=== PATIENT | female | born 1960 | race American Indian/Alaskan Native ===

== ENCOUNTER 2018-03-07 13:10 | Emergency (ER) | payer SELFPAY ==
--- NOTE | 2018-03-07 13:58 | XRay Report ---
LEFT FOOT, 3 views: History: Foot/toe injury, pain. The bony architecture is intact. Bony alignment is normal. No soft tissue abnormalities are seen. The joint spaces appear preserved. A small plantar spur is noted. IMPRESSION: No evidence for acute injury. Small plantar spur.
--- NOTE | 2018-03-07 18:14 | Emergency Department Report ---
ED Lower Extremity HPI - General Chief Complaint: Extremity Injury, Lower Stated Complaint: FELL DOWN STAIRS/POSS BROKEN TOES Time Seen by Provider: 03/07/18 18:04 Source: patient, family Mode of arrival: Wheelchair Limitations: No Limitations - History of Present Illness Initial Comments: This is a 57-year-old female patient here reported that she fell down stairs and possible have Procan fourth toe. She reports bruising to her left second toe and pain. She reports swelling and pain is 10 out of 10 worse with weightbearing and touching. No alleviating factors. She says she took Motrin at home for pain. MD Complaint: foot injury, fall -: This afternoon Injury: Toes: Left (left second toe pain, bruising and swelling) Type of Injury: hyperflexion Place: home Severity: severe Severity scale (0 -10): 10 Improves With: nothing Worsens With: weight bearing, movement, palpation Context: fall Associated Symptoms: swelling, able to partially bear weight. denies: numbness , tingling, unable to bear weight, ambulatory Treatments Prior to Arrival: NSAIDS - Related Data Previous Rx's Medication Instructions Recorded Last Taken Type Ibuprofen [Motrin] 800 mg PO Q8HR PRN #21 tablet 03/07/18 Unknown Rx Allergies Allergy/AdvReac Type Severity Reaction Status Date / Time codeine Allergy Swelling Verified 03/07/18 13:16 ED Review of Systems ROS: Stated complaint: FELL DOWN STAIRS/POSS BROKEN TOES Other details as noted in HPI Constitutional: denies: chills, fever Eyes: denies: eye discharge ENT: denies: epistaxis Respiratory: denies: cough, shortness of breath, SOB with exertion, SOB at rest , stridor, wheezing Cardiovascular: denies: chest pain, palpitations, edema, syncope Gastrointestinal: denies: abdominal pain, nausea, vomiting, diarrhea Musculoskeletal: joint swelling, arthralgia. denies: back pain, myalgia Skin: change in color ( left second toe). denies: rash, lesions Neurological: abnormal gait (due to injury to left foot). denies: headache, numbness, paresthesias, confusion ED Past Medical Hx - Past Medical History Previous Medical History?: Yes Hx Hypertension: Yes Hx Asthma: Yes - Surgical History Past Surgical History?: Yes Additional Surgical History: tubal ligation - Family History Family history: hypertension - Social History Smoking Status: Never Smoker Substance Use Type: Alcohol, Marijuana - Medications Home Medications: Home Medications Medication Instructions Recorded Confirmed Last Taken Type Ibuprofen [Motrin] 800 mg PO Q8HR PRN #21 tablet 03/07/18 Unknown Rx ED Physical Exam - General Limitations: No Limitations General appearance: alert, in no apparent distress - Head Head exam: Present: atraumatic, normocephalic, normal inspection - Eye Eye exam: Present: normal appearance, PERRL, EOMI. Absent: periorbital swelling , periorbital tenderness Pupils: Present: normal accommodation - ENT ENT exam: Present: normal exam, normal orophraynx, mucous membranes moist - Neck Neck exam: Present: normal inspection, full ROM, other (no C-spine tenderness). Absent: tenderness, lymphadenopathy - Respiratory Respiratory exam: Present: normal lung sounds bilaterally. Absent: respiratory distress, chest wall tenderness - Cardiovascular Cardiovascular Exam: Present: regular rate, normal rhythm, normal heart sounds - Extremities Exam Extremities exam: Present: normal inspection, full ROM (limited range of motion to left second toe and worsened pain with dorsiflexion), tenderness (left second toe), normal capillary refill, joint swelling ( left second toe), other ( No cce. + 2 pulses in all extremities, no neurovascular compromise except bruising and swelling, contusion second toe secondary to falling. Patient with limited range of motion second toe.). Absent: pedal edema, calf tenderness - Back Exam Back exam: Present: normal inspection, full ROM. Absent: tenderness - Neurological Exam Neurological exam: Present: alert, oriented X3, abnormal gait (patient on crutches due to unsteadiness from injury to the second toe.), reflexes normal - Psychiatric Psychiatric exam: Present: normal affect, normal mood - Skin Skin exam: Present: warm, dry, intact, ecchymosis (left second toe). Absent: rash, cyanosis ED Course Vital Signs 03/07/18 13:16 Temperature 99.5 F Pulse Rate 86 Respiratory 16 Rate Blood Pressure 147/46 O2 Sat by Pulse 96 Oximetry - Reevaluation(s) Reevaluation #1: 03/07/18 18:24 Motrin 800 mg by mouth, see procedure note for splinted. Patient has her on crutches - Orthopedic Splinting/Casting Injury #1 Side: left Lower Extremity Injury Location: foot, toe (second toe) Lower Extremity Immobilizer: post-op shoe Additional Comments: Patient has her own crutches. Pedal pulses 2+ and bounding ED Lower Extremity MDM - Radiology Data Radiology results: report reviewed X-ray three-view left foot dictated by radiologist report reviewed by myself. Please see report below. Patient: TACO BADILLO MR#: [id number] : 1960 Acct:[id number] Age/Sex: 57 / F ADM Date: 03/07/18 Loc: ED Attending Dr: Ordering Physician: MATTHIAS BORJA MD Date of Service: 03/07/18 Procedure(s): XR foot 3+V LT Accession Number(s): [id number] cc: ED MD JONH Fluoro Time In Minutes: LEFT FOOT, 3 views: History: Foot/toe injury, pain. The bony architecture is intact. Bony alignment is normal. No soft tissue abnormalities are seen. The joint spaces appear preserved. A small plantar spur is noted. IMPRESSION: No evidence for acute injury. Small plantar spur. Transcribed By: TTR Dictated By: MIKE CONTRERAS JR, MD Electronically Authenticated By: MIKE CONTRERAS JR, MD Signed Date/Time: 03/07/181356 DD/ 56 TD/TT: 03/07/181356 - Medical Decision Making This is a 7-year-old female here reports that she tripped and fell from stairs and injured her left second toe and complaining of bruising and swelling with pain. She came with her friend and also using crutches. I saw and examined patient and her physical exam is normal except she has contusion to left second toe with swelling, bruising and tenderness to palpate. She is able to ambulate but she says it is painful. She was given Motrin 800 mg by mouth and instruction in Rice therapy. Patient placed in postop shoe and she has her own crutches. Pedal pulses are 2+ and bounding and no neurovascular compromise. I discussed the patient that her x-ray of left foot 3 views that was dictated by radiologist and reviewed by myself shows negative fracture but she does have soft tissue swelling in which is a contusion and also she has a calcaneal spur. Explanation given and she voiced understanding. Patient discharged home with prescription for Motrin and to follow-up with orthopedic doctor if needed. She voiced understanding discharge instruction and discharged home with her friend in stable condition. - Differential Diagnosis FX versus contusion, sprain, strain, musculoskeletal pain Critical care attestation.: If time is entered above; I have spent that time in minutes in the direct care of this critically ill patient, excluding procedure time. ED Disposition Clinical Impression: Contusion of toe of left foot Qualifiers: Encounter type: initial encounter Toe: lesser toe Damage to nail status: without damage Qualified Code(s): S90.122A - Contusion of left lesser toe(s) without damage to nail, initial encounter Disposition: DC-01 TO HOME OR SELFCARE Is pt being admited?: No Does the pt Need Aspirin: No Condition: Stable Instructions: Foot Contusion (ED), RICE Therapy (ED) Additional Instructions: Please follow discharge instructions on Rice therapy Take Motrin to reduce inflammation as instructed Follow up orthopedic doctor as needed. Referrals: PRIMARY MD CARLA [Primary Care Provider] - 03/09/18 AKSHAT ELIZABETH MD [Staff Physician] - 03/12/18 Forms: Work/School Release Form(ED), Accompanied Note
[2018-03-07] MEDS ORDERED: MOTRIN PO ONE (18:15)
[2018-03-07 18:40] VITALS: BP 150/58
== END 2018-03-07 18:39 | disposition home or self-care (01) ==
LOC: ED 13:10
DX: S90.122A Contusion of left lesser toe(s) without damage to nail, initial encounter (principal); I10 Essential (primary) hypertension; F12.10 Cannabis abuse, uncomplicated; Z98.51 Tubal ligation status; Z88.4 Allergy status to anesthetic agent; W10.9XXA Fall (on) (from) unspecified stairs and steps, initial encounter; Y93.89 Activity, other specified; Y99.8 Other external cause status; Y92.019 Unspecified place in single-family (private) house as the place of occurrence of the external cause

== ENCOUNTER 2018-05-02 09:28 | Day surgery (SDC) | payer OTHER ==
[~2018-05-02 09:28] MED LIST: ADRENALIN IV ONE; ADRENALIN ONE; DIPRIVAN 10 MG/ML IV ONE; NACL 0.9% 1000 ML IR ONE; QUELICIN ONE; SUBLIMAZE ONE; XYLOCAINE 1% 20 mL INFILTRATI ONE; XYLOCAINE 1%/ EPI 1:100,000 INFILTRATI ONE; XYLOCAINE MPF 2% ONE
[2018-05-02] MEDS ORDERED: ANCEF/STERILE WATER 2 GM/20 ML IV NR (10:00)
[2018-05-02] MEDS ORDERED: LACTATED RINGERS 1,000 ML IV SCH (10:00)
[2018-05-02] MEDS ORDERED: LOVENOX SUB-Q NR (10:30)
[2018-05-02] MEDS ORDERED: NACL 0.9% 1000 ML 3,000 ML ONE (11:03)
[2018-05-02] MEDS ORDERED: ADRENALIN ONE (11:04)
[2018-05-02] MEDS ORDERED: XYLOCAINE 1% 20 mL ONE (11:04)
--- NOTE | 2018-05-02 11:07 | Anesthesia Consultation ---
Anesthesia Consult and Med Hx Date of service: 05/02/18 - Airway Anesthetic Teeth Evaluation: Good, Crowns ROM Head & Neck: Adequate Mental/Hyoid Distance: Adequate Mallampati Class: Class I Intubation Access Assessment: Probably Good - Pulmonary Exam CTA: Yes - Cardiac Exam Cardiac Exam: RRR - Pre-Operative Health Status ASA Pre-Surgery Classification: ASA2 Proposed Anesthetic Plan: General - Pulmonary Hx Asthma: Yes (RESCUE INHALER) - Cardiovascular System Hx Hypertension: Yes (SINCE 2007) Hx Heart Attack/AMI: No Hx Heart Murmur: No - Central Nervous System Hx Neuromuscular Disorder: No Hx Seizures: No Hx Psychiatric Problems: No - Gastrointestinal Hx Gastroesophageal Reflux Disease: No - Endocrine Hx Renal Disease: No - Other Systems Hx Alcohol Use: Yes (OCCA) Hx Substance Use: No Hx Cancer: No - Additional Comments Anesthesia Medical History Comments: No GAC, No FHAC
[2018-05-02] MEDS ORDERED: VERSED IV NR (11:11)
[2018-05-02] MEDS ORDERED: DILAUDID IV PRN (12:18)
[2018-05-02] MEDS ORDERED: DEMEROL IV PRN (12:18)
[2018-05-02] MEDS ORDERED: TYLENOL PO PRN (12:18)
[2018-05-02] MEDS ORDERED: NARCAN 0.4 MG/1 ML IV PRN (12:18)
[2018-05-02] MEDS ORDERED: ZOFRAN IV PRN (12:18)
[2018-05-02] MEDS ORDERED: TORADOL IV PRN (12:18)
--- NOTE | 2018-05-02 12:18 | Anesthesia Day of Surgery ---
Anesthesia Day of Surgery - Day of Surgery Patient Examined: Yes Patient H&P Reviewed: Yes Patient is NPO: Yes
[2018-05-02] MEDS ORDERED: ZEMURON IV ONE ×2 (12:35→15:39)
[2018-05-02] MEDS ORDERED: NEO SYNEPHRINE/NS Syringe(OR USE) IV ONE ×2 (12:35→15:16)
[2018-05-02] MEDS ORDERED: DECADRON ONE (12:36)
[2018-05-02] MEDS ORDERED: XYLOCAINE 1%/ EPI 1:100,000 INFILTRATI ONE (12:55)
[2018-05-02] MEDS ORDERED: XYLOCAINE 1% 20 mL INFILTRATI ONE ×2 (12:58→13:18)
[2018-05-02] MEDS ORDERED: NACL 0.9% 1000 ML IR ONE ×2 (12:58→13:18)
[2018-05-02] MEDS ORDERED: ADRENALIN IV ONE ×2 (12:58→13:18)
[2018-05-02] MEDS ORDERED: DILAUDID ONE (13:08)
[2018-05-02] MEDS ORDERED: LACTATED RINGERS 2,000 ML ONE (15:25)
[2018-05-02] MEDS ORDERED: ANCEF ONE (16:24)
[2018-05-02] MEDS ORDERED: NACL 0.9% 1000 ML 1,000 ML ONE (17:00)
[2018-05-02 19:56] VITALS: BP 129/75
--- NOTE | 2018-05-04 11:20 | Post Anesthesia Evaluation ---
- Post Anesthesia Evaluation Patient Participated: Yes Airway Patent: Yes Stable Respiratory Function: Yes Nausea/Vomiting: No Temp > 96.8F: Yes Pain Manageable: Yes Adequeate Hydration: Yes Anesthesia Complications: No Block Receding Appropriately: Not Applicable Patient on Ventilator: No
--- NOTE | 2018-06-29 15:22 | Operative Report ---
Operative Report Operative Report: Plastic Surgery Operative Note Preoperative Diagnosis: Unacceptable Cosmetic appearance Postoperative Diagnosis: Same Procedure: Full lipoabdominoplasty with liposuction of the upper and lower abdomen, anterior waistline. 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 She desires a flat midsection. We discussed the benefits as well as the risks of lipoabdominoplasty, including but not limited to hematoma, seroma, infection, bleeding, scarring, keloids, pulmonary embolus and the need for further surgery. The patient understood and accepted these risks and decided to move forward with surgery. Informed consent was obtained. Procedure: After review of pertinent history and phsyical exam findings the patient was brought into the operating room and placed supine on the OR table. After induction of adequtae general endotracheal anesthesia, the abdomen was prepped and draped in the usual sterile surgical fashion. Using an 11 blade, cannula entry incisions were made in the lower abdomen, and 3.0 L of tumescent solution was infiltrated into the tissues of the abdomen and flanks. Power assisted liposcution was performed until aspirate was blood-tinged, for a total of 3.8L, 2.8L of which was pure fat. We then began the tummy tuck portion of the procedure, creating a lower abdominal incision using a 10 blade, which was carried through subcutaneous tissue using the electrocautery. This dissection along the rectus fascia was carried cephalad to the xiphoid process, after which point rectus diastasis (measuring 5 cm at its widest) was repaired using 0 PDO Quill suture. The bed was then placed in a beach chair position and the lower abdominal pannus was marked and sharply excised. A 19 Fr Mina drain was placed and secured with a 2-0 Nylon suture and we began closure of her incisions in 3 layers beginning with a PDO Quill suture to approximate Magdy's fascia follwed by 3-0 Monoderm Quill in 2 layers. The umbilicus was delivered through the abdominal skin flap and secured with 2-0 Monocryl and 3-0 subcuticular sutures. All incisions were then sealed with Dermabond. Telfa and tegaderm dressings were then placed on the breasts along with ABD pads to the abdomen, followed by a compression garment. Patient was then awakened from general anesthesia and transferred to PACU in stable condition. There were no complications. All sponge, needle and instrument counts were correct at the end of the case.
== END 2018-05-02 09:29 | disposition home or self-care (01) ==
LOC: OR 09:28
PROVIDERS: ATTEND Plastic Surgery
DX: Z41.1 Encounter for cosmetic surgery (principal); I10 Essential (primary) hypertension; J45.909 Unspecified asthma, uncomplicated; Z79.899 Other long term (current) drug therapy; Z88.5 Allergy status to narcotic agent; Z72.89 Other problems related to lifestyle; Z98.51 Tubal ligation status; Z98.890 Other specified postprocedural states; Z80.3 Family history of malignant neoplasm of breast; Z80.41 Family history of malignant neoplasm of ovary
CPT/HCPCS: 15877; J0171; J0690; J1100; J1170; J1650; J1885; J2250; J2370; J2704; J3010; J7030; J7120; J0330